=== PATIENT | male | born 1980 | race Hispanic/Latino ===

== ENCOUNTER 2017-12-06 16:40 | Emergency (ER) | payer SELFPAY ==
[2017-12-06 16:53] VITALS: BP 129/77
== END 2017-12-06 22:20 | disposition left against medical advice (07) ==
LOC: ED 16:40
DX: H57.8 Other specified disorders of eye and adnexa (principal); Z53.21 Procedure and treatment not carried out due to patient leaving prior to being seen by health care provider

== ENCOUNTER 2019-12-12 20:27 | Emergency (ER) | payer SELFPAY ==
[2019-12-12 20:36] VITALS: BP 112/65
--- NOTE | 2019-12-12 20:43 | Emergency Department Report ---
Blank Doc - Documentation Documentation: 39-year-old male that presents with lower back pain and left elbow pain s/p fa ll. Exam: midline lumbar spinal tenderness and elbow tenderness. This initial assessment/diagnostic orders/clinical plan/treatment(s) is/are subject to change based on patient's health status, clinical progression and re- assessment by fellow clinical providers in the ED. Further treatment and workup at subsequent clinical providers discretion. Patient/guardians urged not to elope from the ED as their condition may be serious if not clinically assessed and managed. Initial orders include: 1- Patient sent to [facility] for further evaluation and treatment 2- xarys
--- NOTE | 2019-12-12 21:22 | XRay Report ---
LUMBAR SPINE 3 VIEWS INDICATION: pain s/p fall TODAY; LOWER BACK PAIN COMPARISON: 07/30/2012 FINDINGS: There is no fracture, subluxation, or other acute radiographic abnormality of the lumbar spine. Signer Name: Damon Pope MD Signed: 12/12/2019 9:18 PM Workstation Name: [id number]
--- NOTE | 2019-12-12 21:22 | XRay Report ---
LEFT ELBOW 3 VIEWS INDICATION / CLINICAL INFORMATION: MAIN: pain s/p fall; LT ELBOW PAIN AFTER A FALL TODAY COMPARISON: None available. FINDINGS: BONES / JOINT(S): No acute fracture or subluxation. No significant arthritis. SOFT TISSUES: No significant abnormality. ADDITIONAL FINDINGS: None. Signer Name: Damon Pope MD Signed: 12/12/2019 9:17 PM Workstation Name: [id number]
[2019-12-12] MEDS ORDERED: IBUPROFEN 600 MG TAB PO ONE (22:01)
[2019-12-12] MEDS ORDERED: ONDANSETRON 4 MG ODT TAB PO ONE (22:01)
[2019-12-12] MEDS ORDERED: HYDROcodone/ACETAMINOPHEN 5-325 MG TAB PO ONE (22:01)
--- NOTE | 2019-12-12 22:06 | Emergency Department Report ---
ED Fall HPI - General Chief Complaint: Fall Stated Complaint: FALL,BACK AND ARM PAIN Time Seen by Provider: 12/12/19 20:42 Source: patient Mode of arrival: Ambulatory - History of Present Illness Initial Comments: Patient is a 39-year-old white male with no past medical history who presents to the ED with complaint of acute onset persistent severe low back pain and left elbow and forearm pain after he slipped and fell down when getting out of his mother's house about 1 hour ago and landed on the doorstep. Patient states that the pain has worsened such that any active range of motion of left or left elbow and ambulation makes the pain in the lower back and left forearm worse. Patient denies seizures, syncope, loss of consciousness, headache, dizziness, neck pain, chest pain, shortness of breath, abdominal pain, hematuria, testicular pain, numbness and tingling or weakness of upper and lower extremities bilaterally, urinary or bowel incontinence and saddle paresthesia. MD Complaint: fall, other (LEFT ELBOW AND LOWER BACK PAIN) -: Sudden, hour(s) (1) Fall From: standing, other (Slipped at the door way and fell down) When Fall Occurred: 1 hour [employer] Fall Witnessed: yes, by family Place Fall Occurred: home Loss of Consciousness: none Prolonged Down Time?: no Symptoms Prior to Fall: none Location: back (lower), other (left elbow and forearm) Location - Extremities: Left: Arm (left), Elbow (left), Forearm (left) Severity: severe Severity scale (0 -10): 9 Quality: sharp, aching Context: tripped/slipped Associated Symptoms: denies. denies: headache, neck pain, numbness, weakness, chest paint, shortness of breath, abdominal pain, hematuria, unable to walk, lightheaded, confusion, other - Related Data Previous Rx's Medication Instructions Recorded Last Taken Type HYDROcodone/APAP 5-325 [Ferris 1 each PO Q6HR PRN #10 tablet 10/17/15 Unknown Rx 5-325 mg TAB] Ibuprofen [Motrin 600 MG tab] 600 mg PO Q6H PRN #30 tablet 10/17/15 Unknown Rx cephALEXin [Keflex] 500 mg PO Q6HR #40 capsule 10/17/15 Unknown Rx Acetaminophen/Codeine [Tylenol 1 tab PO Q6H PRN #12 tab 10/22/18 Unknown Rx /Codeine # 3 tab] Clindamycin [Clindamycin CAP] 300 mg PO Q8H #21 cap 10/22/18 Unknown Rx Ibuprofen [Motrin] 800 mg PO Q8HR PRN #30 tablet 12/12/19 Unknown Rx methOCARBAMOL [Robaxin TAB] 750 mg PO Q8H PRN #24 tab 12/12/19 Unknown Rx traMADoL [Ultram] 50 mg PO Q6HR PRN #10 tablet 12/12/19 Unknown Rx Allergies Allergy/AdvReac Type Severity Reaction Status Date / Time No Known Allergies Allergy Unverified 07/22/13 11:44 ED Review of Systems ROS: Stated complaint: FALL,BACK AND ARM PAIN Other details as noted in HPI Constitutional: denies: chills, fever Eyes: denies: eye pain, eye discharge, vision change ENT: denies: ear pain, throat pain Respiratory: denies: cough, shortness of breath, wheezing Cardiovascular: denies: chest pain, palpitations Endocrine: no symptoms reported Gastrointestinal: denies: abdominal pain, nausea, diarrhea Genitourinary: denies: urgency, dysuria Musculoskeletal: back pain (Low back pain), arthralgia (Left elbow and forearm pain), myalgia. 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 old, eye irritation - Surgical History Past Surgical History?: No - Social History Smoking Status: Current Every Day Smoker Substance Use Type: None - Medications Home Medications: Home Medications Medication Instructions Recorded Confirmed Last Taken Type HYDROcodone/APAP 5-325 [Ferris 1 each PO Q6HR PRN #10 tablet 10/17/15 Unknown Rx 5-325 mg TAB] Ibuprofen [Motrin 600 MG tab] 600 mg PO Q6H PRN #30 tablet 10/17/15 Unknown Rx cephALEXin [Keflex] 500 mg PO Q6HR #40 capsule 10/17/15 Unknown Rx Acetaminophen/Codeine [Tylenol 1 tab PO Q6H PRN #12 tab 10/22/18 Unknown Rx /Codeine # 3 tab] Clindamycin [Clindamycin CAP] 300 mg PO Q8H #21 cap 10/22/18 Unknown Rx Ibuprofen [Motrin] 800 mg PO Q8HR PRN #30 tablet 12/12/19 Unknown Rx methOCARBAMOL [Robaxin TAB] 750 mg PO Q8H PRN #24 tab 12/12/19 Unknown Rx traMADoL [Ultram] 50 mg PO Q6HR PRN #10 tablet 12/12/19 Unknown Rx ED Physical Exam - General Limitations: No Limitations General appearance: alert, in no apparent distress - Head Head exam: Present: atraumatic, normocephalic, normal inspection - Eye Eye exam: Present: normal appearance, PERRL, EOMI Pupils: Present: normal accommodation - ENT ENT exam: Present: normal exam, normal orophraynx, mucous membranes moist, TM's normal bilaterally, normal external ear exam - Neck Neck exam: Present: normal inspection, full ROM. Absent: tenderness, meningismus, lymphadenopathy, thyromegaly - Respiratory Respiratory exam: Present: normal lung sounds bilaterally. Absent: respiratory distress, wheezes, rhonchi, chest wall tenderness, accessory muscle use, decreased breath sounds, prolonged expiratory - Cardiovascular Cardiovascular Exam: Present: regular rate, normal rhythm, normal heart sounds. Absent: systolic murmur, diastolic murmur, rubs, gallop - GI/Abdominal GI/Abdominal exam: Present: soft, normal bowel sounds. Absent: tenderness, guarding, rebound, hyperactive bowel sounds, hypoactive bowel sounds, organomegaly - Extremities Exam Extremities exam: Present: normal inspection, full ROM, tenderness (Palpable left elbow and forearm tenderness), normal capillary refill - Back Exam Back exam: Present: normal inspection, full ROM, tenderness (Palpable lumbosacral paraspinal musculoskeletal tenderness), muscle spasm, paraspinal tenderness - Neurological Exam Neurological exam: Present: alert, oriented X3, CN II-XII intact, normal gait, reflexes normal - Psychiatric Psychiatric exam: Present: normal affect, normal mood - Skin Skin exam: Present: warm, dry, intact, normal color. Absent: rash ED Course Vital Signs 12/12/19 20:31 Temperature 97.9 F Pulse Rate 74 Respiratory 18 Rate Blood Pressure 112/65 O2 Sat by Pulse 97 Oximetry ED Medical Decision Making - Radiology Data Radiology results: report reviewed, image reviewed Findings [facility] [address] [place] [address] XRay Report Signed Patient: KENDRICK MIRANDA JR MR#: [id number] : 1980 Acct:[id number] Age/Sex: 39 / M ADM Date: 12/12/19 Loc: ED Attending Dr: Ordering Physician: MILLIE SANABRIA NP Date of Service: 12/12/19 Procedure(s): XR spine lumbosacral 2-3V Accession Number(s): [id number] cc: MILLIE SANABRIA NP Fluoro Time In Minutes: LUMBAR SPINE 3 VIEWS INDICATION: pain s/p fall TODAY; LOWER BACK PAIN COMPARISON: 07/30/2012 FINDINGS: There is no fracture, subluxation, or other acute radiographic abnormality of the lumbar spine. Signer Name: Damon Pope MD Signed: 12/12/2019 9:18 PM Workstation Name: [id number] Transcribed By: SS Dictated By: Damon Pope MD Electronically Authenticated By: Damon Pope MD Signed Date/Time: 12/12/192117 DD/ 15 TD/TT: Findings [facility] [address] [place] [address] XRay Report Signed Patient: KENDRICK MIRANDA JR MR#: [id number] : 1980 Acct:[id number] Age/Sex: 39 / M ADM Date: 12/12/19 Loc: ED Attending Dr: Ordering Physician: MILLIE SANABRIA NP Date of Service: 12/12/19 Procedure(s): XR elbow 3+V LT Accession Number(s): [id number] cc: MILLIE SANABRIA NP Fluoro Time In Minutes: LEFT ELBOW 3 VIEWS INDICATION / CLINICAL INFORMATION: MAIN: pain s/p fall; LT ELBOW PAIN AFTER A FALL TODAY COMPARISON: None available. FINDINGS: BONES / JOINT(S): No acute fracture or subluxation. No significant arthritis. SOFT TISSUES: No significant abnormality. ADDITIONAL FINDINGS: None. Signer Name: Damon Pope MD Signed: 12/12/2019 9:17 PM Workstation Name: [id number] Transcribed By: SS Dictated By: Damon Pope MD Electronically Authenticated By: Damon Pope MD Signed Date/Time: 12/12/192116 DD/ 16 TD/TT: - Medical Decision Making This is a 39-year-old white male with no past medical history who presents to the ED with complaint of acute onset persistent severe low back pain and left elbow and forearm pain after he slipped and fell down when getting out of his mother's house about 1 hour ago and landed on the doorstep. Patient states that the pain has worsened such that any active range of motion of left or left elbow and ambulation makes the pain in the lower back and left forearm worse. In the ED, patient is alert and oriented x3 and is not in distress but appears to be in pain. Patient was treated for pain. L-spine x-ray shows no acute fractures or subluxations. Left elbow x-ray shows no acute fractures or subluxations. On reevaluation, patient's pain is well controlled medications. Patient will discharge home on pain medications and muscle relaxants and advised to follow-up with his primary care physician in 5 to 7 days for reevaluation. Patient was advised return to the ED immediately if symptoms get worse. - Differential Diagnosis Elbow fracture; elbow sprain; muscle spasm; muscle strain Critical care attestation.: If time is entered above; I have spent that time in minutes in the direct care of this critically ill patient, excluding procedure time. ED Disposition Clinical Impression: Spasm of muscle of lower back Sprain of left elbow Qualifiers: Encounter type: initial encounter Qualified Code(s): S53.402A - Unspecified sprain of left elbow, initial encounter Acute low back pain Qualifiers: Back pain laterality: unspecified Sciatica presence: without sciatica Qualified Code(s): M54.5 - Low back pain Disposition: TO HOME OR SELFCARE Is pt being admited?: No Does the pt Need Aspirin: No Condition: Stable Instructions: Acute Low Back Pain (ED), Elbow Sprain (ED), Muscle Spasm (ED) Additional Instructions: Take medication with food, drink plenty of fluids and follow up with your primary care physician in 7 to 10 days for reevaluation. Return to the ED immediately if symptoms get worse. Prescriptions: Ibuprofen [Motrin] 800 mg PO Q8HR PRN #30 tablet PRN Reason: Pain , Severe (7-10) methOCARBAMOL [Robaxin TAB] 750 mg PO Q8H PRN #24 tab PRN Reason: Muscle Spasm traMADoL [Ultram] 50 mg PO Q6HR PRN #10 tablet PRN Reason: Pain Referrals: [facility] [Provider Group] - 3-5 Days ELZA DEL VALLE MD [Staff Physician] - 3-5 Days PRIMARY MD MIN [Primary Care Provider] - 3-5 Days Time of Disposition: 22:06 Print Language: MAORI
== END 2019-12-12 22:33 | disposition home or self-care (01) ==
LOC: ED 20:27
DX: S53.402A Unspecified sprain of left elbow, initial encounter (principal); M54.5 Low back pain; M62.830 Muscle spasm of back; F17.200 Nicotine dependence, unspecified, uncomplicated; Z79.899 Other long term (current) drug therapy; W01.0XXA Fall on same level from slipping, tripping and stumbling without subsequent striking against object, initial encounter; Y93.89 Activity, other specified; Y92.098 Other place in other non-institutional residence as the place of occurrence of the external cause; Y99.8 Other external cause status
CPT/HCPCS: 72100; 99283; Q0162

== ENCOUNTER 2020-10-13 14:13 | Emergency (ER) | payer SELFPAY ==
[2020-10-13 15:03] VITALS: BP 100/64
--- NOTE | 2020-10-13 17:36 | XRay Report ---
LUMBAR SPINE 3 VIEWS INDICATION: lumbar back pain COMPARISON: 12/12/2019 FINDINGS: There is no fracture, subluxation, or other acute radiographic abnormality of the lumbar spine. Signer Name: Damon Pope MD Signed: 10/13/2020 5:31 PM Workstation Name: [id number]
[2020-10-13 17:47] LABS: Hematocrit 43.9 % (35.5-45.6); Hemoglobin 14.9 gm/dl (11.8-15.2); Mean Corpuscular HGB Conc 34 % (32-34); Mean Corpuscular Volume 95 fl (84-94); Platelet Count 336 K/mm3 (140-440); Red Blood Count 4.62 M/mm3 (3.65-5.03); Red Cell Distribution Width 14.1 % (13.2-15.2)
[2020-10-13 17:54] LABS: Albumin 4.8 g/dL (3.9-5); Calcium 8.9 mg/dL (8.4-10.2)
[2020-10-13 19:02] LABS: RBC Morphology Normal; Total Cells Counted 100
--- NOTE | 2020-10-13 20:43 | Emergency Department Report ---
ED General Adult HPI - General Chief complaint: Eye Problems Stated complaint: FACE/BACK/HAND SWELLING Time Seen by Provider: 10/13/20 17:09 Source: patient Mode of arrival: Ambulatory Limitations: No Limitations - Related Data Previous Rx's Medication Instructions Recorded Last Taken Type HYDROcodone/APAP 5-325 [Clarion 1 each PO Q6HR PRN #10 tablet 10/17/15 Unknown Rx 5-325 mg TAB] Ibuprofen [Motrin 600 MG tab] 600 mg PO Q6H PRN #30 tablet 10/17/15 Unknown Rx cephALEXin [Keflex] 500 mg PO Q6HR #40 capsule 10/17/15 Unknown Rx Acetaminophen/Codeine [Tylenol 1 tab PO Q6H PRN #12 tab 10/22/18 Unknown Rx /Codeine # 3 tab] Clindamycin [Clindamycin CAP] 300 mg PO Q8H #21 cap 10/22/18 Unknown Rx Ibuprofen [Motrin] 800 mg PO Q8HR PRN #30 tablet 12/12/19 Unknown Rx methOCARBAMOL [Robaxin TAB] 750 mg PO Q8H PRN #24 tab 12/12/19 Unknown Rx traMADoL [Ultram] 50 mg PO Q6HR PRN #10 tablet 12/12/19 Unknown Rx Ciprofloxacin HCl [Ciloxan] 1 drops OP Q6HR #1 bottle 10/13/20 Unknown Rx predniSONE [Deltasone] 20 mg PO QDAY #7 tab 10/13/20 Unknown Rx Allergies Allergy/AdvReac Type Severity Reaction Status Date / Time No Known Allergies Allergy Unverified 07/22/13 11:44 ED Review of Systems ROS: Stated complaint: FACE/BACK/HAND SWELLING Other details as noted in HPI Comment: All other systems reviewed and negative ED Past Medical Hx - Past Medical History Previous Medical History?: Yes Hx Hypertension: Yes Additional medical history: sciatica/ spinal meningitis at nine months old, eye irritation - Social History Smoking Status: Current Every Day Smoker Substance Use Type: None - Medications Home Medications: Home Medications Medication Instructions Recorded Confirmed Last Taken Type HYDROcodone/APAP 5-325 [Clarion 1 each PO Q6HR PRN #10 tablet 10/17/15 Unknown Rx 5-325 mg TAB] Ibuprofen [Motrin 600 MG tab] 600 mg PO Q6H PRN #30 tablet 10/17/15 Unknown Rx cephALEXin [Keflex] 500 mg PO Q6HR #40 capsule 10/17/15 Unknown Rx Acetaminophen/Codeine [Tylenol 1 tab PO Q6H PRN #12 tab 10/22/18 Unknown Rx /Codeine # 3 tab] Clindamycin [Clindamycin CAP] 300 mg PO Q8H #21 cap 10/22/18 Unknown Rx Ibuprofen [Motrin] 800 mg PO Q8HR PRN #30 tablet 12/12/19 Unknown Rx methOCARBAMOL [Robaxin TAB] 750 mg PO Q8H PRN #24 tab 12/12/19 Unknown Rx traMADoL [Ultram] 50 mg PO Q6HR PRN #10 tablet 12/12/19 Unknown Rx Ciprofloxacin HCl [Ciloxan] 1 drops OP Q6HR #1 bottle 10/13/20 Unknown Rx predniSONE [Deltasone] 20 mg PO QDAY #7 tab 10/13/20 Unknown Rx ED Physical Exam - General Limitations: No Limitations General appearance: alert, in no apparent distress - Head Head exam: Present: atraumatic, normocephalic - Eye Eye exam: Present: normal appearance, conjunctival injection (With yellow drainage bilaterally. Mild swelling to the periorbital region. No cellulitis is noted. No entrapment. No nystagmus) Pupils: Present: normal accommodation - ENT ENT exam: Present: mucous membranes moist - Neck Neck exam: Present: normal inspection - Respiratory Respiratory exam: Present: normal lung sounds bilaterally. Absent: respiratory distress - Cardiovascular Cardiovascular Exam: Present: regular rate, normal rhythm. Absent: systolic murmur, diastolic murmur, rubs, gallop - GI/Abdominal GI/Abdominal exam: Present: soft, normal bowel sounds - Rectal Rectal exam: Present: deferred - Extremities Exam Extremities exam: Present: normal inspection, joint swelling (Bilateral swelling to the hands. No cellulitis, no broken skin. Capillary refills are brisk. Sensation intact. Pulses 2+. Full range of motion of the wrist. No fovea sign, no Kanavel sign). Absent: calf tenderness - Back Exam Back exam: Present: normal inspection. Absent: CVA tenderness (R), CVA tenderness (L) - Neurological Exam Neurological exam: Present: alert, oriented X3, CN II-XII intact - Psychiatric Psychiatric exam: Present: normal affect, normal mood - Skin Skin exam: Present: warm, dry, intact, normal color. Absent: rash ED Course Vital Signs 10/13/20 14:59 Temperature 97.9 F Pulse Rate 91 H Respiratory 18 Rate Blood Pressure 100/64 O2 Sat by Pulse 96 Oximetry ED Medical Decision Making - Lab Data Result diagrams: 10/13/20 17:18 10/13/20 17:18 Critical care attestation.: If time is entered above; I have spent that time in minutes in the direct care o f this critically ill patient, excluding procedure time. ED Disposition Disposition: [id number] TO HOME OR SELFCARE Condition: Stable Instructions: Bacterial Conjunctivitis, Adult, [id number], Allergic Conjuncti vitis, Adult, Hand Pain Additional Instructions: Please be sure to hydrate well and follow-up with your doctor to reevaluate your symptoms. Prescriptions: Ciprofloxacin HCl [Ciloxan] 1 drops OP Q6HR #1 bottle predniSONE [Deltasone] 20 mg PO QDAY #7 tab Referrals: [facility] [Provider Group] - 3-5 Days PRIMARY CARE, [Primary Care Provider] - 3-5 Days
== END 2020-10-13 21:35 | disposition home or self-care (01) ==
LOC: ED 14:13
DX: M79.89 Other specified soft tissue disorders (principal); I10 Essential (primary) hypertension; F17.200 Nicotine dependence, unspecified, uncomplicated; Z79.899 Other long term (current) drug therapy
CPT/HCPCS: 36415; 72100; 80053; 85007; 85025; 99283

== ENCOUNTER 2020-12-21 15:31 | Emergency (ER) | payer OTHER ==
--- NOTE | 2020-12-21 17:33 | Emergency Department Report ---
ED ENT HPI - General Chief complaint: Dental/Oral Stated complaint: TOOTH PAIN Time Seen by Provider: 12/21/20 17:30 Source: patient Mode of arrival: Ambulatory Limitations: No Limitations - History of Present Illness Initial comments: Patient is a 40-year-old male presents emergency room complaints of right lower dental pain that began 2 days ago. He states he last saw dentist approximately a year ago. He denies any fever, nausea, vomiting, diarrhea, difficulty swallowing, difficulty breathing. No past medical history. No allergies to medications. - Related Data Previous Rx's Medication Instructions Recorded Last Taken Type HYDROcodone/APAP 5-325 [[place] 1 each PO Q6HR PRN #10 tablet 10/17/15 Unknown Rx 5-325 mg TAB] Ibuprofen [Motrin 600 MG tab] 600 mg PO Q6H PRN #30 tablet 10/17/15 Unknown Rx cephALEXin [Keflex] 500 mg PO Q6HR #40 capsule 10/17/15 Unknown Rx Acetaminophen/Codeine [Tylenol 1 tab PO Q6H PRN #12 tab 10/22/18 Unknown Rx /Codeine # 3 tab] Clindamycin [Clindamycin CAP] 300 mg PO Q8H #21 cap 10/22/18 Unknown Rx Ibuprofen [Motrin] 800 mg PO Q8HR PRN #30 tablet 12/12/19 Unknown Rx methOCARBAMOL [Robaxin TAB] 750 mg PO Q8H PRN #24 tab 12/12/19 Unknown Rx traMADoL [Ultram] 50 mg PO Q6HR PRN #10 tablet 12/12/19 Unknown Rx Ciprofloxacin HCl [Ciloxan] 1 drops OP Q6HR #1 bottle 10/13/20 Unknown Rx predniSONE [Deltasone] 20 mg PO QDAY #7 tab 10/13/20 Unknown Rx Chlorhexidine Mouthwash [Peridex] 15 ml MM BID #1 bottle 12/21/20 Unknown Rx Ibuprofen [Motrin 600 MG tab] 600 mg PO Q8H PRN #20 tablet 12/21/20 Unknown Rx Penicillin Vk [Veetids TAB] 500 mg PO QID 7 Days #56 tablet 12/21/20 Unknown Rx Allergies Allergy/AdvReac Type Severity Reaction Status Date / Time No Known Allergies Allergy Unverified 07/22/13 11:44 ED Dental HPI - General Chief complaint: Dental/Oral Stated complaint: TOOTH PAIN Time Seen by Provider: 12/21/20 17:30 Source: patient Mode of arrival: Ambulatory Limitations: No Limitations - Related Data Previous Rx's Medication Instructions Recorded Last Taken Type HYDROcodone/APAP 5-325 [[place] 1 each PO Q6HR PRN #10 tablet 10/17/15 Unknown Rx 5-325 mg TAB] Ibuprofen [Motrin 600 MG tab] 600 mg PO Q6H PRN #30 tablet 10/17/15 Unknown Rx cephALEXin [Keflex] 500 mg PO Q6HR #40 capsule 10/17/15 Unknown Rx Acetaminophen/Codeine [Tylenol 1 tab PO Q6H PRN #12 tab 10/22/18 Unknown Rx /Codeine # 3 tab] Clindamycin [Clindamycin CAP] 300 mg PO Q8H #21 cap 10/22/18 Unknown Rx Ibuprofen [Motrin] 800 mg PO Q8HR PRN #30 tablet 12/12/19 Unknown Rx methOCARBAMOL [Robaxin TAB] 750 mg PO Q8H PRN #24 tab 12/12/19 Unknown Rx traMADoL [Ultram] 50 mg PO Q6HR PRN #10 tablet 12/12/19 Unknown Rx Ciprofloxacin HCl [Ciloxan] 1 drops OP Q6HR #1 bottle 10/13/20 Unknown Rx predniSONE [Deltasone] 20 mg PO QDAY #7 tab 10/13/20 Unknown Rx Chlorhexidine Mouthwash [Peridex] 15 ml MM BID #1 bottle 12/21/20 Unknown Rx Ibuprofen [Motrin 600 MG tab] 600 mg PO Q8H PRN #20 tablet 12/21/20 Unknown Rx Penicillin Vk [Veetids TAB] 500 mg PO QID 7 Days #56 tablet 12/21/20 Unknown Rx Allergies Allergy/AdvReac Type Severity Reaction Status Date / Time No Known Allergies Allergy Unverified 07/22/13 11:44 ED Review of Systems ROS: Stated complaint: TOOTH PAIN Other details as noted in HPI Comment: All other systems reviewed and negative ED Past Medical Hx - Past Medical History Previous Medical History?: Yes Hx Hypertension: Yes Additional medical history: sciatica/ spinal meningitis at nine months old, eye irritation - Surgical History Past Surgical History?: No - Social History Smoking Status: Current Every Day Smoker Substance Use Type: None - Medications Home Medications: Home Medications Medication Instructions Recorded Confirmed Last Taken Type HYDROcodone/APAP 5-325 [[place] 1 each PO Q6HR PRN #10 tablet 10/17/15 Unknown Rx 5-325 mg TAB] Ibuprofen [Motrin 600 MG tab] 600 mg PO Q6H PRN #30 tablet 10/17/15 Unknown Rx cephALEXin [Keflex] 500 mg PO Q6HR #40 capsule 10/17/15 Unknown Rx Acetaminophen/Codeine [Tylenol 1 tab PO Q6H PRN #12 tab 10/22/18 Unknown Rx /Codeine # 3 tab] Clindamycin [Clindamycin CAP] 300 mg PO Q8H #21 cap 10/22/18 Unknown Rx Ibuprofen [Motrin] 800 mg PO Q8HR PRN #30 tablet 12/12/19 Unknown Rx methOCARBAMOL [Robaxin TAB] 750 mg PO Q8H PRN #24 tab 12/12/19 Unknown Rx traMADoL [Ultram] 50 mg PO Q6HR PRN #10 tablet 12/12/19 Unknown Rx Ciprofloxacin HCl [Ciloxan] 1 drops OP Q6HR #1 bottle 10/13/20 Unknown Rx predniSONE [Deltasone] 20 mg PO QDAY #7 tab 10/13/20 Unknown Rx Chlorhexidine Mouthwash [Peridex] 15 ml MM BID #1 bottle 12/21/20 Unknown Rx Ibuprofen [Motrin 600 MG tab] 600 mg PO Q8H PRN #20 tablet 12/21/20 Unknown Rx Penicillin Vk [Veetids TAB] 500 mg PO QID 7 Days #56 tablet 12/21/20 Unknown Rx ED Physical Exam - General Limitations: No Limitations General appearance: alert, in no apparent distress - Head Head exam: Present: atraumatic, normocephalic - Eye Eye exam: Present: normal appearance - ENT ENT exam: Present: normal orophraynx (no muffled voice, no tongue elevation, no submandibular edema), mucous membranes moist, other (there are two dental carries with cracked teeth present, there is one to the left lower back molar, there is another to the right lower back molar, there is associated adjancent induration of the gumline, no fluctuance, no drainage, uvula is midline, no uvular edema or deviation, no trismus) - Respiratory Respiratory exam: Absent: respiratory distress, accessory muscle use - Neurological Exam Neurological exam: Present: alert, oriented X3 - Psychiatric Psychiatric exam: Present: normal affect, normal mood - Skin Skin exam: Present: warm, dry, intact ED Course Vital Signs 12/21/20 16:47 Temperature 98.4 F Pulse Rate 75 Respiratory 18 Rate Blood Pressure 127/85 [Right] O2 Sat by Pulse 97 Oximetry ED Medical Decision Making - Medical Decision Making Patient is a 40-year-old male presents emergency room complaints of right lower dental pain that began 2 days ago. He states he last saw dentist approximately a year ago. He denies any fever, nausea, vomiting, diarrhea, difficulty swallowing, difficulty breathing. No past medical history. No allergies to medications. Vitals are stable. On exam:there are two dental carries with cracked teeth present, there is one to the left lower back molar, there is another to the right lower back molar, there is associated adjancent induration of the gumline, no fluctuance, no drainage, uvula is midline, no uvular edema or deviation, no trismus, no muffled voice, no tongue elevation, no submandibular edema. Examination appears consistent with infected dental caries. Patient has no clinical signs of facial abscess, facial cellulitis, [place] at this time. Patient given prescription for medications. Advised patient Please use medication as prescribed. Please follow-up with a dentist. It is very important that you follow-up with a dentist. Return to emergency room for new or worsening symptoms. Critical care attestation.: If time is entered above; I have spent that time in minutes in the direct care of this critically ill patient, excluding procedure time. ED Disposition Clinical Impression: Cracked tooth, Infected dental caries Disposition: TO HOME OR SELFCARE Is pt being admited?: No Does the pt Need Aspirin: No Condition: Stable Instructions: Dental Abscess Additional Instructions: Please use medication as prescribed. Please follow-up with a dentist. It is very important that you follow-up with a dentist. Return to emergency room for new or worsening symptoms. Prescriptions: Ibuprofen [Motrin 600 MG tab] 600 mg PO Q8H PRN #20 tablet PRN Reason: Pain Chlorhexidine Mouthwash [Peridex] 15 ml MM BID #1 bottle Penicillin Vk [Veetids TAB] 500 mg PO QID 7 Days #56 tablet Referrals: [facility] [Outside] - 3-5 Days [facility] [Outside] - 3-5 Days Time of Disposition: 17:32 Print Language: BENGALI
== END 2020-12-21 17:54 | disposition home or self-care (01) ==
LOC: ED 15:31
CPT/HCPCS: 99281

== ENCOUNTER 2021-02-26 10:49 | Emergency (ER) | payer OTHER ==
[2021-02-26 10:57] VITALS: BP 116/73
--- NOTE | 2021-02-26 15:49 | Emergency Department Report ---
ED Back Pain/Injury HPI - General Chief Complaint: Back Pain/Injury Stated Complaint: SLIP AND FALL STANDING POSTION Time Seen by Provider: 02/26/21 15:38 Source: patient Limitations: No Limitations - History of Present Illness Initial Comments: 40-year-old male presents to the emergency room complaining of lower back pain. Patient reported to me that he had a fall 2 days ago. Patient reports to the nurse that he had a fall this morning. Review of patient's chart shows he has chronic back pain. Patient reports has not taken anything for his back pain. Patient denies any urinary or bowel incontinent. Denies any radiation to his lower extremities. Denies any fever no chills no dysuria no testicular pain or testicular swelling. MD Complaint: back pain Onset/Timin -: days(s) Similar Symptoms Previously: Yes Place: home Radiation: none Severity: mild Consistency: intermittent Improves With: none Worsens With: none Context: fall Associated Symptoms: denies other symptoms - Related Data Previous Rx's Medication Instructions Recorded Last Taken Type HYDROcodone/APAP 5-325 [[place] 1 each PO Q6HR PRN #10 tablet 10/17/15 Unknown Rx 5-325 mg TAB] Ibuprofen [Motrin 600 MG tab] 600 mg PO Q6H PRN #30 tablet 10/17/15 Unknown Rx cephALEXin [Keflex] 500 mg PO Q6HR #40 capsule 10/17/15 Unknown Rx Acetaminophen/Codeine [Tylenol 1 tab PO Q6H PRN #12 tab 10/22/18 Unknown Rx /Codeine # 3 tab] Clindamycin [Clindamycin CAP] 300 mg PO Q8H #21 cap 10/22/18 Unknown Rx Ibuprofen [Motrin] 800 mg PO Q8HR PRN #30 tablet 12/12/19 Unknown Rx methOCARBAMOL [Robaxin TAB] 750 mg PO Q8H PRN #24 tab 12/12/19 Unknown Rx traMADoL [Ultram] 50 mg PO Q6HR PRN #10 tablet 12/12/19 Unknown Rx Ciprofloxacin HCl [Ciloxan] 1 drops OP Q6HR #1 bottle 10/13/20 Unknown Rx predniSONE [Deltasone] 20 mg PO QDAY #7 tab 10/13/20 Unknown Rx Chlorhexidine Mouthwash [Peridex] 15 ml MM BID #1 bottle 12/21/20 Unknown Rx Ibuprofen [Motrin 600 MG tab] 600 mg PO Q8H PRN #20 tablet 12/21/20 Unknown Rx Penicillin Vk [Veetids TAB] 500 mg PO QID 7 Days #56 tablet 12/21/20 Unknown Rx Allergies Allergy/AdvReac Type Severity Reaction Status Date / Time No Known Allergies Allergy Unverified 07/22/13 11:44 ED Review of Systems ROS: Stated complaint: SLIP AND FALL STANDING POSTION Other details as noted in HPI Comment: All other systems reviewed and negative ED Past Medical Hx - Past Medical History Previous Medical History?: Yes Hx Hypertension: Yes Additional medical history: sciatica/ spinal meningitis at nine months old, eye irritation - Surgical History Past Surgical History?: No - Social History Smoking Status: Current Every Day Smoker Substance Use Type: None - Medications Home Medications: Home Medications Medication Instructions Recorded Confirmed Last Taken Type HYDROcodone/APAP 5-325 [[place] 1 each PO Q6HR PRN #10 tablet 10/17/15 Unknown Rx 5-325 mg TAB] Ibuprofen [Motrin 600 MG tab] 600 mg PO Q6H PRN #30 tablet 10/17/15 Unknown Rx cephALEXin [Keflex] 500 mg PO Q6HR #40 capsule 10/17/15 Unknown Rx Acetaminophen/Codeine [Tylenol 1 tab PO Q6H PRN #12 tab 10/22/18 Unknown Rx /Codeine # 3 tab] Clindamycin [Clindamycin CAP] 300 mg PO Q8H #21 cap 10/22/18 Unknown Rx Ibuprofen [Motrin] 800 mg PO Q8HR PRN #30 tablet 12/12/19 Unknown Rx methOCARBAMOL [Robaxin TAB] 750 mg PO Q8H PRN #24 tab 12/12/19 Unknown Rx traMADoL [Ultram] 50 mg PO Q6HR PRN #10 tablet 12/12/19 Unknown Rx Ciprofloxacin HCl [Ciloxan] 1 drops OP Q6HR #1 bottle 10/13/20 Unknown Rx predniSONE [Deltasone] 20 mg PO QDAY #7 tab 10/13/20 Unknown Rx Chlorhexidine Mouthwash [Peridex] 15 ml MM BID #1 bottle 12/21/20 Unknown Rx Ibuprofen [Motrin 600 MG tab] 600 mg PO Q8H PRN #20 tablet 12/21/20 Unknown Rx Penicillin Vk [Veetids TAB] 500 mg PO QID 7 Days #56 tablet 12/21/20 Unknown Rx ED Physical Exam - General Limitations: No Limitations General appearance: alert, in no apparent distress - Head Head exam: Present: atraumatic, normocephalic - Eye Eye exam: Present: normal appearance - ENT ENT exam: Present: mucous membranes moist, normal external ear exam - Neck Neck exam: Present: normal inspection, full ROM - Respiratory Respiratory exam: Absent: accessory muscle use - Cardiovascular Cardiovascular Exam: Present: regular rate - Back Exam Back exam: Present: normal inspection, full ROM, paraspinal tenderness - Neurological Exam Neurological exam: Present: alert, oriented X3, normal gait - Psychiatric Psychiatric exam: Present: normal affect, normal mood - Skin Skin exam: Present: warm, dry, intact, normal color. Absent: rash ED Course Vital Signs 02/26/21 10:56 Temperature 97.7 F Pulse Rate 87 Respiratory 18 Rate Blood Pressure 116/73 O2 Sat by Pulse 99 Oximetry ED Medical Decision Making - Medical Decision Making 40-year-old male presents to the emergency room complaining of lower back pain. Patient reported to me that he had a fall 2 days ago. Patient reports to the nurse that he had a fall this morning. Review of patient's chart shows he has chronic back pain. Patient reports has not taken anything for his back pain. Patient denies any urinary or bowel incontinent. Denies any radiation to his lower extremities. Denies any fever no chills no dysuria no testicular pain or testicular swelling. Patient suffers from chronic back pain. Patient can take [id number] ibuprofen Tylenol or Advil. Patient is to follow-up with his primary care provider Critical care attestation.: If time is entered above; I have spent that time in minutes in the direct care of this critically ill patient, excluding procedure time. ED Disposition Clinical Impression: Chronic back pain greater than 3 months duration Disposition: HOME / SELF CARE / HOMELESS Is pt being admited?: No Does the pt Need Aspirin: No Condition: Stable Instructions: Chronic Back Pain, [id number] Additional Instructions: You can take Tylenol or ibuprofen or naproxen for pain. Follow-up with your primary care provider. Referrals: PRIMARY CARE [Primary Care Provider] - 3-5 Days [facility] [Provider Group] - 3-5 Days Forms: Work/School Release Form(ED)
== END 2021-02-26 15:45 | disposition home or self-care (01) ==
LOC: ED 10:49
DX: M54.5 Low back pain (principal); M54.30 Sciatica, unspecified side; G03.8 Meningitis due to other specified causes; F17.200 Nicotine dependence, unspecified, uncomplicated
CPT/HCPCS: 99281